=== PATIENT | male | born 1960 | race Caucasian/White ===

== ENCOUNTER 2020-10-14 23:32 | Emergency (ER) | payer OTHER, SELFPAY ==
--- NOTE | ~2020-10-14 | XR_ITS ---
EXAMINATION: XR chest 2V DATE: 10/15/2020 00:03 INDICATION: Chest tightness TECHNIQUE: frontal and lateral views of the chest were obtained. COMPARISON: None FINDINGS: The lungs are clear with no focal airspace opacities, pulmonary edema, pleural effusion or pneumothor ax. The cardiomediastinal silhouette is normal. Lower thoracic compression fracture with anterior wed ging, likely T12. IMPRESSION: 1. No acute cardiopulmonary disease. Reviewed, dictated and finalized at location A. OSURGERY RESEARCH DIRECTOR
--- NOTE | 2020-10-14 23:14 | ECG_ITS ---
Measurements Intervals [place] Rate: 73 P: 31 CT: 191 QRS: 1 QRSD: 103 T: 30 QT: 395 QTc: 437 Interpretive Statements SINUS RHYTHM BASELINE ARTIFACT- III, AVF NORMAL ECG Electronically Signed On 11-23-2020 8:25:17 [employer] by Rogerio Contreras D.O.
[2020-10-14 23:37] VITALS: BP 167/90; PULSE 86; RESP 14; TEMP 36.9; O2SAT 99
[2020-10-14 23:43] VITALS: O2SAT 99
[2020-10-14] MEDS: ONDANSETRON INJ 4 MG/2 ML VIAL IV PUSH (23:50)
[2020-10-14] MEDS: SODIUM CHLORIDE 0.9% IV 1,000 ML 999 ML IV CONT (23:50)
[2020-10-14] MEDS: ASPIRIN 81 MG CHEWABLE TABLET 324 MG PO (23:50)
[2020-10-14 23:54] LABS: Basophils Absolute Auto 0.1 K/mm3 (0.0-0.1); Basophils Percent Auto 0.6 % (0.2-1.2); Eosinophils Absolute Auto 0.3 K/mm3 (0-0.3); Eosinophils Percent Auto 2.5 % (0-4.4); Hematocrit 44.5 % (42.0-52.0); Hemoglobin 14.8 g/dL (14.0-18.0); Immature Granulocyte Absolute 0.06 K/mm3 (0.00-0.031); Immature Granulocyte Percent A 0.5 % (0-0.5); Lymphocytes Absolute Auto 4.68 K/mm3 (0.9-3.2); Lymphocytes Percent Auto 37.3 % (18.3-44.2); Mean Corpuscular HGB Conc 33.3 g/dl (32-36); Mean Corpuscular Hemoglobin 29.7 pg (26-34); Mean Corpuscular Volume 89.2 fl (80-100); Mean Platelet Volume 9.8 fl (7.4-10.4); Monocytes Absolute Auto 1.6 K/mm3 (0.1-0.6); Neutrophils Absolute Auto 5.8 K/mm3 (1.3-6.7); Neutrophils Percent Auto 46.1 % (45.5-73.1); Platelet Count Result 307 k/mm3 (150-375); Red Blood Count 4.99 M/mm3 (4.6-6.20); Red Cell Distribution Width 13.4 % (11.5-14.5); White Blood Count 12.5 K/mm3 (4.5-10.0)
[2020-10-15] VITALS (16 sets, daily range): BP systolic 138–156; BP diastolic 67–83; PULSE 54–82; RESP 13–18; TEMP 36.6; O2SAT 92–100
[2020-10-15 00:06] LABS: INR 0.9; Prothrombin Time 12.4 Seconds (11.1-14.7)
[2020-10-15 00:07] LABS: Partial Thromboplastin Time 28.3 SECONDS (22.3-36.8)
[2020-10-15 00:12] LABS: Anion Gap 9 mmol/L (8-16); Blood Urea Nitrogen 20 mg/dL (9-20); Calcium 8.7 mg/dL (8.4-10.2); Carbon Dioxide 26 mmol/L (22-30); Chloride 105 mmol/L (98-107); Estimated CRCL calculation 89 ml/min; Estimated Glomerular Filt Rate > 60; Glucose 129 mg/dL (75-110); Potassium 3.5 mmol/L (3.4-5.0); Sodium 140 mmol/L (137-145)
[2020-10-15 00:23] LABS: Troponin I < 0.012 ng/mL (0.000-0.034)
[2020-10-15 01:25] LABS: Alanine Aminotransferase 24 U/L (4-50); Albumin Level 3.8 g/dL (3.5-5.1); Alkaline Phosphatase 86 U/L (38-126); Aspartate Amino Transferase 23 U/L (17-59); Bilirubin,Total 0.3 mg/dL (0.2-1.3)
[2020-10-15 01:26] LABS: Lipase 91 U/L (23-300)
--- NOTE | 2020-10-15 01:42 | ED.GENADULT ---
HPI - General Adult General Chief complaint: Chest Pain Stated complaint: light headed/ CP/ n/v Time Seen by Provider: 10/14/20 23:37 History of Present Illness HPI narrative: Patient 60-year-old gentleman who presents emergency department chief complaint of lower chest/epigastric discomfort. The patient states that he had eaten [place] food tonight with his family was sitting back watching football game and then started feeling lightheaded felt as though the room was spinning and then vomited. Upon arrival to the emergency department the patient states he is still having kind of an epigastric type discomfort and then continued to start vomiting and had multiple episodes of emesis after vomiting the patient felt much better and the patient vomited a large amount of [place] food. Patient denies fever denies chills reports that after vomiting his pain is resolved. Related Data Allergies Allergy/AdvReac Type Severity Reaction Status Date / Time No Known Allergies Allergy Verified 10/14/20 23:44 Review of Systems Review of Systems: Narrative: A 10 system review of systems was completed on the patient and is negative except for what is stated in the HPI. Nursing and ancillary documentation was reviewed. PMFSH Comments Social history patient denies smoking or illicit drug use Exam Narrative: Exam Narrative: GENERAL: Well-appearing, well-nourished, and in no acute distress. HEAD: Normocephalic, atraumatic. EYES: PERRLA and EOMI. ENT: Nares clear, no rhinorrhea or epistaxis. Mucous membranes moist. NECK: Supple. CHEST: Clear to auscultation. No respiratory distress. HEART: Regular rate and rhythm. No murmur heard. Normal peripheral pulses. ABDOMEN: Soft, nontender, nondistended, normal active bowel sounds. EXTREMITIES: Normal range of motion. No edema. SKIN: Warm, dry, no rash. NEURO: No focal deficits. Alert and oriented x3. PSYCH: Normal mood and affect. Course Course Emergency Course: After vomiting the patient's symptoms had resolved is now feeling much better after IV fluids and antiemetics. Patient's EKG showed no evidence of acute ischemic changes and initial troponin was negative. Vital Signs Vital signs: Vital Signs Temperature 36.9 C 10/14/20 23:37 Pulse Rate 86 10/14/20 23:37 Respiratory Rate 14 10/14/20 23:37 Blood Pressure 167/90 H 10/14/20 23:37 Pulse Oximetry 99 10/14/20 23:37 Temperature 36.6 C 10/15/20 01:54 Pulse Rate 61 10/15/20 02:45 Respiratory Rate 17 10/15/20 01:54 Blood Pressure 138/67 10/15/20 01:54 Pulse Oximetry 96 10/15/20 02:45 Medical Decision Making Vital Signs Vital Signs: Vital Signs Temperature 36.9 C 10/14/20 23:37 Pulse Rate 86 10/14/20 23:37 Respiratory Rate 14 10/14/20 23:37 Blood Pressure 167/90 H 10/14/20 23:37 Pulse Oximetry 99 10/14/20 23:37 Temperature 36.6 C 10/15/20 01:54 Pulse Rate 61 10/15/20 02:45 Respiratory Rate 17 10/15/20 01:54 Blood Pressure 138/67 10/15/20 01:54 Pulse Oximetry 96 10/15/20 02:45 Lab Data Result diagrams: 10/14/20 23:48 10/14/20 23:48 Labs: Lab Results 10/14/20 10/14/20 10/14/20 Range/Units 23:48 23:48 23:48 WBC 12.5 H (4.5-10.0) K/mm3 RBC 4.99 (4.6-6.20) M/mm3 Hgb 14.8 (14.0-18.0) g/dL Hct 44.5 (42.0-52.0) % MCV 89.2 (80-100) fl MCH 29.7 (26-34) pg MCHC 33.3 (32-36) g/dl RDW 13.4 (11.5-14.5) % Plt Count 307 (150-375) k/mm3 MPV 9.8 (7.4-10.4) fl Immature Gran % (Auto) 0.5 (0-0.5) % Neut % (Auto) 46.1 (45.5-73.1) % Lymph % (Auto) 37.3 (18.3-44.2) % Dougherty % (Auto) 13.0 H (2.6-8.5) % Eos % (Auto) 2.5 (0-4.4) % Baso % (Auto) 0.6 (0.2-1.2) % Lymph # (Auto) 4.68 H (0.9-3.2) K/mm3 Dougherty # (Auto) 1.6 H (0.1-0.6) K/mm3 Eos # (Auto) 0.3 (0-0.3) K/mm3 Baso # (Auto) 0.1 (0.0-0.1) K/mm3 Abs Immat Gran (auto) 0.06 H (0.00-0.031) K/mm
--- NOTE | 2020-10-15 01:58 | PC.NURSE ---
Pt ambulated in room independently. Denies dizziness and nausea. Pt states he is ready to go home. notified.
--- NOTE | 2020-10-15 02:55 | PC.NURSE ---
Called main lab to check on the 3 hour trop, spoke with Ginny, she stated it is still running.
[2020-10-15 02:56] LABS: Troponin I < 0.012 ng/mL (0.000-0.034)
== END 2020-10-15 03:16 | disposition home or self-care (01) ==
PROVIDERS: Emergency Provider Emergency Medicine; PCP Internal Medicine
DX: R07.89 Other chest pain (principal); R11.2 Nausea with vomiting, unspecified
CPT/HCPCS: 36415; 71046; 80048; 80076; 83690; 84484; 85025; 85610; 85730; 93005; 96361; 96374; 99284; A9270; J2405; J7030